=== PATIENT | male | born 1990 | race Caucasian/White ===

== ENCOUNTER 2022-01-25 10:14 | Emergency (ER) | payer BC, MEDICAID ==
[~2022-01-25] VITALS: Ht 185.4 cm; Wt 100.7 kg
[2022-01-25 10:15] VITALS: BP_SYST 131
--- NOTE | 2022-01-25 10:45 | NUR ---
ER MD Jerome at bedside
--- NOTE | 2022-01-25 11:05 | NUR ---
Patient with radiology for xrays; patient tolerated well.
--- NOTE | 2022-01-25 11:15 | NUR ---
Patient to ER bed H1 for evaluation. Side rails up. Report given to Sameera PATEL.
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
--- NOTE | 2022-01-25 11:55 | NUR ---
Patient has ankle splint applied to right ankle and given crutches. Capillary refill < 3 seconds. Patient has ability to move non-splinted digits. Has sensation present to affected site. Skin color within normal limits. Applied for pain management control. Patient educated on proper use of crutches and was able to return demonstration education. NAD noted at this time.
[2022-01-25] MEDS ORDERED: IBUP-1969 PO (11:56)
--- NOTE | 2022-01-25 12:12 | NUR ---
Patient given written and verbal discharge instructions and verbalizes understanding. Patient given written off work order by ER MD per patient request. ER MD discussed with patient the results and treatment provided. Patient in stable condition. ID arm band removed. Rx of 600mg Ibuprofen given. Patient educated on pain management and to follow up with PMD. Pain Scale 8/10. Opportunity for questions provided and answered. Patient A/Ox4, VSS, resp even and unlabored. NAD noted at this time.
[2022-01-25 12:14] VITALS: BP_SYST 131
[2022-01-25] MEDS ORDERED: IBUPROFEN 600 MG TABLET PO ONE (12:15)
== END 2022-01-25 12:12 | disposition home or self-care (01) ==
LOC: SED 10:14
DX: S93.431A Sprain of tibiofibular ligament of right ankle, initial encounter (principal); W18.30XA Fall on same level, unspecified, initial encounter; Y93.89 Activity, other specified; Y92.89 Other specified places as the place of occurrence of the external cause; Y99.8 Other external cause status
CPT/HCPCS: 99283